=== PATIENT | female | born 1960 | race Caucasian/White ===

== ENCOUNTER 2016-06-30 08:12 | Day surgery (SDC) | payer BC ==
[2016-06-30] MEDS ORDERED: PROPOFOL 10 MG/ML VIAL IV ONE (14:00)
[2016-06-30] MEDS ORDERED: MIDAZOLAM HCL 2MG/2ML VIAL IV ONE (14:00)
[2016-06-30] MEDS ORDERED: LIDOCAINE 2% MDV (20MG/ML) 20ML VIAL IV ONE (14:00)
--- NOTE | 2016-07-01 12:10 | Operative Note ---
DATE OF SURGERY: 06/30/2016 REFERRING PHYSICIAN: Dereck Marion DO PREOPERATIVE DIAGNOSIS: See below. POSTOPERATIVE DIAGNOSIS: See below. PROCEDURE: COLONOSCOPY to the cecum with cold biopsy forceps polypectomy x 1. INDICATION: Colorectal cancer screening. Intravenous sedation was administered by the Department of Anesthesiology and included Diprivan titrated to effect. PROCEDURE: Following informed consent from this alert individual, including a discussion of the risks and benefits of the procedure and an opportunity for the patient to ask questions, the patient was placed in the left lateral decubitus position. A digital rectal examination was performed. No abnormalities were detected. Following this, an Olympus [id number] video colonoscope was inserted into the rectum without resistance. The rectal mucosa had a normal appearance, with normal folds and distensibility. The colonoscope was advanced up through the colon to the level of the cecum without much difficulty. Throughout the bowel, the mucosa appeared normal, the folds are normal and the bowel is fairly well distensible. The cecum was defined by noting the appendiceal orifice and ileocecal valve. The colon preparation was good. Retroflexion in the cecum was endoscopically unremarkable. From the base of the cecum, the colonoscope was then withdrawn. No changes were noted until the rectum was reached. In the mid rectum, there was a diminutive 3 mm polyp noted, which was removed with application of cold biopsy forceps. Retroflexion in the rectum was unremarkable. The endoscope was straightened and removed. The patient tolerated the procedure well and was returned to the Recovery Area in stable condition. IMPRESSION: 1. A 3 mm rectal polyp removed with biopsy forceps. 2. Otherwise unremarkable colonoscopy to the cecum. RECOMMENDATIONS: Patient was advised she should receive a copy of her pathology report at home in the next 2-3 weeks. If not, she was asked to call my office to review results of testing today. Further recommendations forthcoming pending those results. Followup will otherwise be with Dr. Marion. As always, thank you for allowing me to participate in the care of your patient. Elfego Stevens DO CC: Dereck Marion DO [facility]
== END 2016-06-30 09:50 | disposition home or self-care (01) ==
LOC: HOP 08:12
PROVIDERS: ATTEND Internal Medicine Gastroenterology
DX: Z12.11 Encounter for screening for malignant neoplasm of colon (principal); K63.5 Polyp of colon

== ENCOUNTER 2016-08-18 18:39 | Emergency (ER) | payer BC ==
[2016-08-18] MEDS ORDERED: KETOROLAC 60 MG/2 ML VIAL IM STA (18:57)
--- NOTE | 2016-08-18 19:00 | Emergency Department Record ---
History of Present Illness - General Chief Complaint: Back Pain/Injury Stated Complaint: BACK PAIN Time Seen by Provider: 08/18/16 18:57 Source: Patient Mode of Arrival: Ambulatory Limitations: No limitations - History of Present Illness Initial Comments: 56 yo female presents to ED with a CC of intermittent low back pain symptoms for the past several weeks. Patient has been undergoing PT for her symptoms, underwent recent MRI as well for her symptoms. Patient's PCP prescribed Tramadol in addition to Motrin 800 for to assist with pain at night and to help her sleep. Patient reports that she has not taken any Tramadol today however as she does not want to become dependent on narcotic pain medication, but is concerned about flying to [place] tomorrow with her symptoms. Patient denies new injury/trauma or recent strain. MD Complaint: Back pain Onset/Timin -: Month(s) Similar Symptoms Previously: Yes Place: Home Radiation: None Severity: Severe Severity scale (1-10): 9 Quality: Burning, Sharp Consistency: Constant Improves With: Walking Worsens With: None Context: Unknown Associated Symptoms: Denies other symptoms Treatments Prior to Arrival: Other - Related Data Home Medications Medication Instructions Recorded Confirmed Last Taken Ropinirole HCl 2 mg PO QHS 30 Days 08/05/16 08/18/16 Unknown Tramadol HCl [Tramadol HCl ER] 100 mg PO ASDIR 08/18/16 08/18/16 Unknown Previous Rx's Medication Instructions Recorded Diazepam [Valium] 5 mg PO Q8H PRN #15 tab 08/18/16 Allergies Allergy/AdvReac Type Severity Reaction Status Date / Time Sulfa (Sulfonamide Allergy HIVES Verified 08/18/16 18:48 Antibiotics) Travel Screening - Travel/Exposure Within Last 30 Days Have you traveled within the last 30 days?: No Review of Systems Constitutional: Denies: Chills, Fever, Malaise, Night sweats Eyes: Denies: Eye discharge, Eye pain ENT: Denies: Congestion, Ear pain, Epistaxis Respiratory: Denies: Cough, Dyspnea Cardiovascular: Denies: Chest pain, Dyspnea on exertion Endocrine: Denies: Fatigue, Heat or cold intolerance Gastrointestinal: Denies: Abdominal pain, Nausea, Vomiting Genitourinary: Denies: Incontinence, Retention Musculoskeletal: Reports: Back pain. Denies: Arthralgia, Gout, Joint swelling Skin: Denies: Bruising, Change in color Neurological: Denies: Abnormal gait, Confusion, Headache, Seizure Psychiatric: Denies: Anxiety Hematological/Lymphatic: Denies: Anemia, Blood Clots Past Medical History - SOCIAL HISTORY Smoking Status: Never smoker Alcohol Use: Rare Drug Use: None - RESPIRATORY Hx Respiratory Disorders: No - CARDIOVASCULAR Hx Cardio Disorders: No - NEURO Hx Neuro Disorders: No - GI Hx GI Disorders: No - Hx Genitourinary Disorders: Yes Hx Kidney Stones: Yes - ENDOCRINE Hx Endocrine Disorders: No Hx Diabetes: No Hx Thyroid Disease: No - MUSCULOSKELETAL Hx Musculoskeletal Disorders: No - PSYCH Hx Psych Problems: No - HEMATOLOGY/ONCOLOGY Hx Hematology/Oncology Disorders: No Family Medical History Any Significant Family History?: No Physical Exam - General General Appearance: Alert, Oriented x3, Cooperative, Moderate distress Limitations: No limitations - Head Head exam: Atraumatic, Normocephalic, Normal inspection Head exam detail: negative: Abrasion, Contusion, Edgar's sign, General tenderness, Hematoma, Laceration - Eye Eye exam: Normal appearance. negative: Conjunctival injection, Periorbital swelling, Periorbital tenderness, Scleral icterus - ENT Ear exam: negative: Auricular hematoma, Auricular trauma Nasal Exam: negative: Active bleeding, Discharge, Dried blood, Foreign body Mouth exam: negative: Drooling, Laceration, Muffled voice, Tongue elevation - Neck Neck exam: Normal inspection. negative: Meningismus, Tenderness - Respiratory Respiratory exam: Normal lung sounds bilaterally. negative: Rales, Respiratory distress, Rhonchi, Stridor - Cardiovascular Cardiovascular Exam: Regular rate, Normal rhythm, Normal heart sounds - GI/Abdominal GI/Abdominal exam: Soft. negative: Rebound, Rigid, Tenderness - Rectal Rectal exam: Deferred - exam: Deferred - Extremities Extremities exam: Normal inspection. negative: Calf tenderness, Pedal edema, Tenderness - Back Back exam: Reports: Paraspinal tenderness. Denies: CVA tenderness (R), CVA tenderness (L) - Neurological Neurological exam: Alert, Normal gait, Oriented X3 - Psychiatric Psychiatric exam: Normal affect, Normal mood - Skin Skin exam: Normal color. negative: Abrasion Type of lesion: negative: abrasion Course Vital Signs 08/18/16 18:42 Temperature 98.3 F Pulse Rate 73 Respiratory 20 Rate Blood Pressure 111/53 Pulse Ox 95 - Reevaluation(s) Reevaluation #1: 08/18/16 19:00 MRI Lumbar Spine: 08/11/16 Mild multi-level degenerative changes Minimal foraminal narrowing from L2-S1 NO significant canal stenosis Reviewed the patient's recent MRI with her, patient reports that she has not been taking her tramadol today for pain symptoms to be used at night onoly. Will prescribe Valium to be used as needed as well. Patient appears stable for discharge at this time. Reevaluation #2: 08/18/16 19:14 Patient reassessed and reports improvement in her pain symptoms, appears stable for discharge at this time. Disposition Disposition: Discharge Clinical Impression: Acute exacerbation of chronic low back pain Disposition: Home, Self-Care Condition: (2) Stable Instructions: Low Back Strain (ED) Additional Instructions: Return to ED if your symptoms worsen or if you have any concerns. Valium as directed. Follow-up with your family doctor in 3-5 days as directed. Prescriptions: Diazepam [Valium] 5 mg PO Q8H PRN #15 tab PRN Reason: Pain - Moderate (5-7) Forms: Patient Portal Access Time of Disposition: 19:00
== END 2016-08-18 19:18 | disposition home or self-care (01) ==
LOC: ER 18:39
DX: G89.29 Other chronic pain (principal); M54.5 Low back pain
CPT/HCPCS: 96372; 99283; J1885

== ENCOUNTER 2018-06-10 23:14 | Emergency (ER) | payer BC ==
[2018-06-10] MEDS ORDERED: METHYLPREDNISOLONE PF 125MG/VIAL IM ONE (23:28)
[2018-06-10] MEDS ORDERED: KETOROLAC 30 MG/ML VIAL IM ONE (23:28)
--- NOTE | 2018-06-10 23:34 | Emergency Department Record ---
History of Present Illness - General Chief complaint: Lower Extremity Pain Stated complaint: RIGHT KNEE PAIN Time Seen by Provider: 06/10/18 23:27 Source: Patient Mode of Arrival: Ambulatory Limitations: No limitations - History of Present Illness Initial comments: 58 yo female presents to ED for evaluation of right knee pain that began approximately 1 hour ago. Patient reports a history of arthritis to both knees , is undergoing joint injections to the left knee currently, but reports intermittent sharp pain to the right knee x 1 hour. Patient reports that Ibuprofen normally helps, but reports she did not take anything tonight as Ibuprofen previously "messed with a test" for her knee. Patient denies recent injury, fevers, chills, or redness to the knee. Patient denies new swelling or pain to the popliteal region, calf on examination. Patient has been seeing Dr. Tolentino for her knee pain symptoms. Complaint: Joint pain Onset/Timin -: Hour(s) Location: Right, Knee -: Yes Arthralgia Severity scale (1-10): 9 Quality: Sharp Consistency: Constant Improves with: Nothing Worsens with: Exertion, Walking, Weight bearing Associated Symptoms: Denies other symptoms - Related Data Previous Rx's Medication Instructions Recorded Naproxen [Naprosyn] 500 mg PO BID #30 tablet 06/11/18 Prednisone [Prednisone 20Mg] 20 mg PO BID #10 tab 06/11/18 Allergies Allergy/AdvReac Type Severity Reaction Status Date / Time Sulfa (Sulfonamide Allergy HIVES Verified 08/18/16 18:48 Antibiotics) Travel Screening - Travel/Exposure Within Last 30 Days Have you traveled within the last 30 days?: No - Travel Symptoms Symptom Screening: None Review of Systems Constitutional: Denies: Chills, Fever, Malaise Eyes: Denies: Eye discharge, Eye pain ENT: Denies: Congestion, Ear pain, Epistaxis Respiratory: Denies: Cough, Dyspnea Cardiovascular: Denies: Chest pain, Dyspnea on exertion Endocrine: Denies: Fatigue, Heat or cold intolerance Gastrointestinal: Denies: Abdominal pain, Nausea, Vomiting Genitourinary: Denies: Incontinence, Retention Musculoskeletal: Reports: Arthralgia. Denies: Back pain, Gout, Joint swelling Skin: Denies: Bruising, Change in color Neurological: Denies: Abnormal gait, Confusion, Headache, Seizure Psychiatric: Denies: Anxiety Hematological/Lymphatic: Denies: Anemia, Blood Clots Past Medical History - SOCIAL HISTORY Smoking Status: Never smoker - RESPIRATORY Hx Respiratory Disorders: No - CARDIOVASCULAR Hx Cardio Disorders: No - NEURO Hx Neuro Disorders: No - GI Hx GI Disorders: No - Hx Genitourinary Disorders: Yes Hx Kidney Stones: Yes - ENDOCRINE Hx Endocrine Disorders: No Hx Diabetes: No Hx Thyroid Disease: No - MUSCULOSKELETAL Hx Musculoskeletal Disorders: Yes Hx Arthritis: Yes Comment:: knee problems - PSYCH Hx Psych Problems: No - HEMATOLOGY/ONCOLOGY Hx Hematology/Oncology Disorders: No Family Medical History Any Significant Family History?: Yes Family Hx Comment (NOT TO BE USED IN PLACE OF ITEMS BELOW): Thyroid issues w/ family Hx Cancer: Father Hx Heart Disease: Mother *Heart Comment: at 49y.o. Physical Exam - General General Appearance: Alert, Oriented x3, Cooperative, Mild distress Limitations: No limitations - Head Head exam: Atraumatic, Normocephalic, Normal inspection Head exam detail: negative: Abrasion, Contusion, Edgar's sign, General tenderness, Hematoma, Laceration - Eye Eye exam: Normal appearance. negative: Conjunctival injection, Periorbital swelling, Periorbital tenderness, Scleral icterus - ENT Ear exam: negative: Auricular hematoma, Auricular trauma Nasal Exam: negative: Active bleeding, Discharge, Dried blood, Foreign body Mouth exam: negative: Drooling, Laceration, Muffled voice, Tongue elevation - Neck Neck exam: Normal inspection. negative: Meningismus, Tenderness - Respiratory Respiratory exam: Normal lung sounds bilaterally. negative: Rales, Respiratory distress, Rhonchi, Stridor - Cardiovascular Cardiovascular Exam: Regular rate, Normal rhythm, Normal heart sounds - GI/Abdominal GI/Abdominal exam: Soft. negative: Rebound, Rigid, Tenderness - Rectal Rectal exam: Deferred - exam: Deferred - Extremities Extremities exam: Other (No laxity to the ACL/PCL on examination, no erythema, no warmth, no effusion present. No pain with movement of the patella, no pain with plaption to the infra-patellar region. No pain popliteal region. ). negative: Calf tenderness, Pedal edema, Tenderness - Back Back exam: Denies: CVA tenderness (R), CVA tenderness (L) - Neurological Neurological exam: Alert, Oriented X3 - Psychiatric Psychiatric exam: Normal affect, Normal mood - Skin Skin exam: Normal color. negative: Abrasion Type of lesion: negative: abrasion Course Vital Signs 06/10/18 23:18 Temperature 99.7 F H Pulse Rate 100 H Respiratory 18 Rate Blood Pressure 155/91 Pulse Ox 98 - Reevaluation(s) Reevaluation #1: 06/10/18 23:33 Patient was seen and examined No evidence for septic joint on examination, no trauma or injury noted. Patient declined radiographs reporting "I know there is arthritis there". Will administer Toradol and Solumedrol IM and reassess. Reevaluation #2: 06/11/18 00:14 Patient was reassessed and reports that she is feeling much better. Patient appears stable for discharge on Naprosyn and Prednisone as directed. Disposition Disposition: Discharge Clinical Impression: Knee pain, acute Qualifiers: Laterality: right Qualified Code(s): M25.561 - Pain in right knee Disposition: Home, Self-Care Condition: (2) Stable Instructions: Osteoarthritis (ED) Additional Instructions: Return to ED if your symptoms worsen or if you have any concerns. Prednisone/Naprosyn as directed. Follow-up with Dr. Tolentino in 3-5 days as directed. Prescriptions: Naproxen [Naprosyn] 500 mg PO BID #30 tablet Prednisone [Prednisone 20Mg] 20 mg PO BID #10 tab Forms: Patient Portal Access Time of Disposition: 00:15 Quality - Quality Measures Quality Measures: N/A - Blood Pressure Screening Does Patient Have Any of the Following: No Blood Pressure Classification: Hypertensive Reading Systolic Measurement: 155 Diastolic Measurement: 91 Screening for High Blood Pressure: < First Hypertensive BP, F/U Documented > [ [id number]] First Hypertensive Follow-up Interventions: Referral to alternative/primary care provider.
== END 2018-06-11 00:21 | disposition home or self-care (01) ==
LOC: ER 23:14
DX: M25.561 Pain in right knee (principal)
CPT/HCPCS: 99283 ×2; 96372; J1885; J2930